=== PATIENT | female | born 1980 | race Hispanic/Latino ===

== ENCOUNTER → 2018-09-08 | Outpatient (CLI) | payer OTHER ==
--- NOTE | 2018-09-08 12:24 | Diagnostic Imaging Report ---
EXAM: US ABDOMEN COMPLETE INDICATION: Heartburn, epigastric pain. COMPARISON: None TECHNIQUE: Transverse and longitudinal steiner scale and color doppler sonographic images of the abdomen were obtained. FINDINGS: LIVER 16.3 cm in the right midclavicular line. Increased echogenicity of the liver. No masses. SPLEEN 10.8 cm in maximum diameter. Normal echogenicity, no masses. GALLBLADDER No gallbladder wall thickening, distension, stone, or pericholecystic fluid. Negative reported sonographic Barfield's sign. BILE DUCTS No intra nor extra-hepatic biliary dilation. Common bile duct measures 0.3cm PANCREAS: Visualized portions are normal. RIGHT KIDNEY: Measures 10.5 x 4.0 x 5.1 cm Echogenicity: Normal Collecting System: No hydronephrosis Stones: None Cyst/Mass: None LEFT KIDNEY: Measures 10.7 x 5.2 x 4.1 cm Echogenicity: Normal Collecting System: No hydronephrosis Stones: None Cyst/Mass: None VESSELS: Aorta: Visualized portions are within normal size limits Inferior Vena Cava: Visualized portions are normal Main Portal Vein: 0.8 cm, normal size with hepatopetal flow. FREE FLUID: None IMPRESSION: Hepatomegaly with hepatic steatosis. Signed by: Dr. Helga Porras MD on 09/08/2018 12:21 PM
== END ==
LOC: US 10:37
PROVIDERS: ATTEND Internal Medicine Gastroenterology
DX: R12 Heartburn (principal); R10.13 Epigastric pain; R10.11 Right upper quadrant pain
CPT/HCPCS: 76700